=== PATIENT | female | born 1995 | race African-American/Black ===

== ENCOUNTER 2016-05-30 12:10 | Emergency (ER) | payer SELFPAY ==
[~2016-05-30] VITALS: Ht 177.8 cm; Wt 98.0 kg
[2016-05-30 12:11] VITALS: BP 161/79; PULSE 65; RESP 14; TEMP 98.4; O2SAT 100
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
[2016-05-30] MEDS ORDERED: ONDANSETRON ODT 4 MG TAB PO ONE (12:45)
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
[2016-05-30] MEDS ORDERED: IBUP800T23 PO (14:20)
[2016-05-30] MEDS ORDERED: ZOFR4TAB3 SL (14:20)
[2016-05-30] MEDS ORDERED: CYCL1TAB29 PO (14:20)
== END 2016-05-30 15:38 | disposition home or self-care (01) ==
LOC: NETRI 12:10
DX: S06.0X0A Concussion without loss of consciousness, initial encounter (principal); S16.1XXA Strain of muscle, fascia and tendon at neck level, initial encounter; M62.838 Other muscle spasm; R42 Dizziness and giddiness; Y04.2XXA Assault by strike against or bumped into by another person, initial encounter; Y93.01 Activity, walking, marching and hiking; Y92.241 Library as the place of occurrence of the external cause
CPT/HCPCS: 70450; 72125; 84703

== ENCOUNTER 2017-03-14 03:22 | Emergency (ER) | payer SELFPAY ==
[~2017-03-14] VITALS: Ht 175.3 cm; Wt 106.0 kg
[2017-03-14 03:22] VITALS: BP 144/93; PULSE 51; RESP 16; TEMP 98.6; O2SAT 98
[~2017-03-14 03:22] MED LIST: CYCL10TA PO; IBUP1TAB7 PO; ZOFR4TAB3 SL
[2017-03-14] MEDS ORDERED: MAGICADU2 SWISH-SWAL (04:03)
[2017-03-14] MEDS ORDERED: AMOX875T PO (04:03)
--- NOTE | 2017-03-14 04:09 | PD ---
HPI Chief Complaint: ENT Complaint Time Seen by Provider: 03:57 Travel History International Travel<30 days: No Contact w/Intl Traveler<30days: No Traveled to known affect area: No History of Present Illness HPI 22-year-old black female presents department with complaints of sore throat today. She states that earlier this afternoon she developed pain in her throat. She feels as if her tonsils are swelling. Symptoms are mild. She denies any fever chills. No ear pain, cough, congestion, nausea, vomiting, diarrhea or abdominal pain. No urinary symptoms. Symptoms are worse with swallowing. No alleviating factors. PFSH Past Medical History Medical History: Denies Significant Hx Immunizations Current: Yes Tetanus Vaccination: Unknown Influenza Vaccination: No ?: Not Past Surgical History Surgical History: No Previous Surgery Social History Alcohol Use: Yes (rare) Tobacco Use: No Substance Use: Yes (marijuana) Allergies-Medications (Allergen,Severity, Reaction): Coded Allergies: No Known Allergies (Unverified Adverse Reaction, Unknown, 03/14/17) Reported Meds & Prescriptions Reported Meds & Active Scripts Active Magic Mouthwash Adult Liq (Multi-Ingredient Mouthwash/Gargle) 120 Ml Susp 5 Ml SWISH-SWAL ACHS Each 5mL contains: Nystatin 200,000units, Diphenhydramine 4.25mg, Viscous Lidocaine 10mg, [place] syrup 0.8 mL Amoxicillin 875 Mg Tab 875 Mg PO BID 10 Days Zofran Odt (Ondansetron Odt) 4 Mg Tab 4 Mg SL Q6HR PRN 5 Days Flexeril (Cyclobenzaprine HCl) 10 Mg Tab 10 Mg PO TID PRN Ibuprofen 800 Mg Tab 800 Mg PO Q8H PRN Review of Systems General / Constitutional: No: Fever Eyes: No: Visual changes HENT: Positive: Sore Throat, No: Headaches, Nosebleed, Neck Pain, Earache Cardiovascular: No: Chest Pain or Discomfort Respiratory: No: Cough, Shortness of Breath Gastrointestinal: No: Nausea, Vomiting, Diarrhea, Abdominal Pain Genitourinary: No: Dysuria Musculoskeletal: No: Pain Skin: No Rash Neurologic: No: Weakness Psychiatric: No: Depression Endocrine: No: Polydipsia Hematologic/Lymphatic: No: Easy Bruising Physical Exam Narrative GENERAL: Well-developed, well-nourished in no acute distress. Nontoxic appearing. HEAD: Normocephalic, atraumatic. EYES: Pupils equal round and reactive. Extraocular motions intact. No scleral icterus. No injection or drainage. ENT: TMs clear without erythema. The external auditory canals clear. Nose: clear . Posterior pharynx is mildly erythematous and moist. Positive tonsillar edema but no exudate. Uvula midline but is mildly edematous. Airway patent. NECK: Trachea midline.Supple, nontender, moves head freely. No central bony tenderness or spasm. Positive cervical lymphadenopathy CARDIOVASCULAR: Regular rate and rhythm without murmurs, gallops, or rubs. RESPIRATORY: Clear to auscultation. Breath sounds equal bilaterally. No wheezes , rales, or rhonchi. GASTROINTESTINAL: Abdomen soft, non-tender, nondistended. No hepato-splenomegaly , or palpable masses. No guarding. EXTREMITIES: No clubbing, cyanosis, or edema. No joint tenderness, effusion, or edema noted. BACK: Nontender without deformity or crepitance. No flank tenderness. Data Data Last Documented VS Vital Signs Date Time Temp Pulse Resp B/P (MAP) Pulse Ox O2 Delivery O2 Flow Rate FiO2 03/14/17 03:22 98.6 51 16 144/93 (110) 98 Room Air Orders Orders Amoxicillin (Trimox) (03/14/17 04:15) Sdvh-Sgbs-Qnez Liq (Magic Mouthwash Adul (03/14/17 09:00) MDM Medical Decision Making Medical Screen Exam Complete: Yes Emergency Medical Condition: Yes Medical Record Reviewed: Yes Differential Diagnosis MDM: High Differential diagnoses: Strep throat, viral pharyngitis, mono, peritonsillar abscess, retropharyngeal abscess, Austin's angina Narrative Course This is acute pharyngitis. Patient is given amoxicillin 1 g by mouth and Magic mouthwash. Diagnosis Primary Impression: Acute pharyngitis Qualified Codes: J02.9 - Acute pharyngitis, unspecified Patient Instructions: General Instructions Departure Forms: School Release, Please excuse from school until (free text option): No school 3 days. Tests/Procedures Additional Instructions: Rest. Force fluids. Saltwater gargles. Tylenol and Advil. Chloraseptic [place] Cepastat lozenge. Amoxicillin and Magic mouthwash. Follow-up with a primary care doctor in one week. Return to the ER if any problems. Med/Other Pt SpecificInfo: Prescription(s) given Scripts Lnkkjicz-Wuspgoylhvyfncf-Rdkquratm Liq (Magic Mouthwash Adult Liq) 120 Ml Susp 5 ML SWISH-SWAL ACHS for Mouth sores, #120 ML 0 Refills Each 5mL contains: Nystatin 200,000units, Diphenhydramine 4.25mg, Viscous Lidocaine 10mg, [place] syrup 0.8 mL Prov: Imtiaz Mary MD 03/14/17 Amoxicillin (Amoxicillin) 875 Mg Tab 875 MG PO BID for Infection for 10 Days, #20 TAB 0 Refills Prov: Imtiaz Mary MD 03/14/17 Disposition: 01 DISCHARGE HOME Condition: Stable Cory Garcia Mar 14, 2017 04:09
[2017-03-14] MEDS ORDERED: AMOXICILLIN (TRIHYDRATE) 500 MG CAP PO ONE (04:15)
[2017-03-14] MEDS ORDERED: NYSTAT/DIPHENHY/LIDO MOUTHWASH (Adult) 120ML SWISH-SWAL SCH (09:00)
== END 2017-03-14 04:21 | disposition home or self-care (01) ==
LOC: NEPD 03:22
DX: J02.9 Acute pharyngitis, unspecified (principal)
CPT/HCPCS: 99284